=== PATIENT | male | born 1950 | race Caucasian/White ===

== ENCOUNTER 2022-02-09 23:47 | Inpatient (IN) | payer MEDICARE, OTHER ==
[~2022-02-09] VITALS: Ht 177.8 cm; Wt 109.5 kg
[~2022-02-09 23:47] MED LIST: ARICEPT10 MG PO; ASPIRIN CHEWABL81 MG PO; ATORVASTATIN CA20 MG PO; BASAGLAR K100 UNIT/1 SC; BASAGLAR K100 UNIT/1 SQ; BRILINTA 90 MG90 MG PO; BYSTOLIC10 MG PO; CARVEDILOL3.125 MG PO; CATAPRES 0.1MG0.1 MG PO; CATAPRES0.2 MG PO; CEFPODOXIME PR200 MG PO; CEFUROXIME250 MG PO; CLARITIN10 MG PO; CRESTOR40 MG PO; FERREX 150150 MG PO; FISH OIL 1,2001 EAC2 PO; GLUCOPHAGE1000 MG PO; GLUCOTROL5 MG PO; HYDRALAZINE HC100 MG PO; IMDUR ER TAB 6060 MG PO; JANUVIA100 MG PO; LOSARTAN-HCTZ1 EAC1 PO; MELATONIN5 M2 PO; NITROGLYCERIN0.4 MG SL; NORVASC10 MG PO; PAXIL20 MG PO; POTASSIUM CHLO10 ME1 PO; PROTONIX40 MG PO; SINEMET 25-1001 EACH PO; SULFAMETHOXAZO1 EACH PO; THERAGRAN M TAB1 EA PO; TRAMADOL HCL50 MG PO; TRAMADOL PO; TRAZODONE HCL100 MG PO; VITAMIN D35000 UNI1 PO; ZANTAC150 MG PO; ZETIA 10 MG TAB10 MG PO
[2022-02-10 00:24] LABS: HEMOGLOBIN 13.4 gm/dl (14.0-17.5); RED BLOOD COUNT 5.37 M/UL (4.20-5.50); WHITE BLOOD COUNT 26.7 K/UL (4.5-11.0)
[2022-02-10 04:43] LABS: HEMOGLOBIN 11.7 gm/dl (14.0-17.5)
[2022-02-10 04:49] LABS: RED BLOOD COUNT 4.67 M/UL (4.20-5.50); WHITE BLOOD COUNT 17.4 K/UL (4.5-11.0)
--- NOTE | 2022-02-10 12:04 | NUR ---
BEDSIDE BRONCH TO START AT THIS TIME
--- NOTE | 2022-02-10 12:35 | NUR ---
1215 ENDED BRONC/WASHING / PER SX CREW SAMPLE TOOK TO LAB VIA SX , STAYED AT BEDSIDE DURING PROCEDURE, V/S REMAINED STABLE
[2022-02-10 13:22] LABS: BODY FLUID SOURCE BRONCHIAL LAVAGE
--- NOTE | 2022-02-10 13:28 | NUR ---
cardiology PA seeing pt at this time family at bedside
[2022-02-10] MEDS ORDERED: NOVOLOG FL100 UNIT/1 SQ (13:33)
[2022-02-10] MEDS ORDERED: LORATADINE10 MG PO (13:34)
[2022-02-10] MEDS ORDERED: FERREX 150150 MG PO (13:34)
[2022-02-10] MEDS ORDERED: AMLODIPINE BESY10 MG PO (13:35)
[2022-02-10] MEDS ORDERED: BRILINTA90 MG PO (13:41)
[2022-02-10] MEDS ORDERED: FLOMAX 0.4 MG0.4 MG PO (13:41)
--- NOTE | 2022-02-10 14:07 | NUR ---
magazine worker in room at this time pts hr went to 48 and staying there at this time consistantly noted
--- NOTE | 2022-02-10 14:45 | NUR ---
echo just completed
[2022-02-11 05:11] LABS: HEMOGLOBIN 11.4 gm/dl (14.0-17.5); RED BLOOD COUNT 4.55 M/UL (4.20-5.50)
[2022-02-11 05:15] LABS: WHITE BLOOD COUNT 10.7 K/UL (4.5-11.0)
[2022-02-12 05:13] LABS: HEMOGLOBIN 11.5 gm/dl (14.0-17.5); RED BLOOD COUNT 4.57 M/UL (4.20-5.50); WHITE BLOOD COUNT 8.7 K/UL (4.5-11.0)
[2022-02-13 04:30] LABS: HEMOGLOBIN 11.8 gm/dl (14.0-17.5); RED BLOOD COUNT 4.76 M/UL (4.20-5.50)
[2022-02-14 07:04] LABS: HEMOGLOBIN 13.8 gm/dl (14.0-17.5); RED BLOOD COUNT 5.48 M/UL (4.20-5.50)
[2022-02-15 04:51] LABS: HEMOGLOBIN 12.8 gm/dl (14.0-17.5); RED BLOOD COUNT 5.11 M/UL (4.20-5.50)
[2022-02-15 04:55] LABS: WHITE BLOOD COUNT 11.2 K/UL (4.5-11.0)
[2022-02-16 05:14] LABS: HEMOGLOBIN 12.4 gm/dl (14.0-17.5); RED BLOOD COUNT 4.91 M/UL (4.20-5.50); WHITE BLOOD COUNT 11.1 K/UL (4.5-11.0)
[2022-02-17 04:17] LABS: HEMOGLOBIN 12.8 gm/dl (14.0-17.5); RED BLOOD COUNT 5.16 M/UL (4.20-5.50); WHITE BLOOD COUNT 12.6 K/UL (4.5-11.0)
[2022-02-17] MEDS ORDERED: FUROSEMIDE20 MG PO (11:11)
[2022-02-17] MEDS ORDERED: LEVOFLOXACIN250 MG PO (11:11)
[2022-02-17] MEDS ORDERED: ISOSORBIDE MONO60 MG PO (11:16)
== END 2022-02-17 13:03 | disposition home health service (06) | DRG 871 ==
LOC: ER1 23:47 → CCU 02-10 00:46 → CDU 02-10 00:46 → CCU 02-10 02:35
PROVIDERS: Emergency Medicine; Internal Medicine; Internal Medicine Critical Care Medicine; ADMIT Internal Medicine
PROC: 5A1945Z Respiratory Ventilation, 24-96 Consecutive Hours (ICD-10-PCS; 2022-02-10)
PROC: 0B9F8ZX Drainage of Right Lower Lung Lobe, Via Natural or Artificial Opening Endoscopic, Diagnostic (ICD-10-PCS; 2022-02-10)
PROC: B24BZZZ Ultrasonography of Heart with Aorta (ICD-10-PCS; 2022-02-10)
PROC: 3E03329 Introduction of Other Anti-infective into Peripheral Vein, Percutaneous Approach (ICD-10-PCS; 2022-02-10)
PROC: 0BH17EZ Insertion of Endotracheal Airway into Trachea, Via Natural or Artificial Opening (ICD-10-PCS; principal; 2022-02-10 12:00)
PROC: 5A09357 Assistance with Respiratory Ventilation, Less than 24 Consecutive Hours, Continuous Positive Airway Pressure (ICD-10-PCS; 2022-02-12)
DX: A41.9 Sepsis, unspecified organism (principal); I21.A1 Myocardial infarction type 2; J96.21 Acute and chronic respiratory failure with hypoxia; J69.0 Pneumonitis due to inhalation of food and vomit; J15.9 Unspecified bacterial pneumonia; I13.0 Hypertensive heart and chronic kidney disease with heart failure and stage 1 through stage 4 chronic kidney disease, or unspecified chronic kidney disease; I50.32 Chronic diastolic (congestive) heart failure; E87.2 Acidosis; N39.0 Urinary tract infection, site not specified; G93.40 Encephalopathy, unspecified; I25.10 Atherosclerotic heart disease of native coronary artery without angina pectoris; G47.33 Obstructive sleep apnea (adult) (pediatric); R65.20 Severe sepsis without septic shock; K57.90 Diverticulosis of intestine, part unspecified, without perforation or abscess without bleeding; K21.9 Gastro-esophageal reflux disease without esophagitis; K76.0 Fatty (change of) liver, not elsewhere classified; E78.5 Hyperlipidemia, unspecified; I73.9 Peripheral vascular disease, unspecified; F02.80 Dementia in other diseases classified elsewhere, unspecified severity, without behavioral disturbance, psychotic disturbance, mood disturbance, and anxiety; I48.0 Paroxysmal atrial fibrillation; G30.9 Alzheimer's disease, unspecified; G20 Parkinson's disease; H54.40 Blindness, one eye, unspecified eye; D63.1 Anemia in chronic kidney disease; R00.1 Bradycardia, unspecified; E11.51 Type 2 diabetes mellitus with diabetic peripheral angiopathy without gangrene; Z86.73 Personal history of transient ischemic attack (TIA), and cerebral infarction without residual deficits; Z79.899 Other long term (current) drug therapy; Z98.890 Other specified postprocedural states; Z87.891 Personal history of nicotine dependence; Z99.3 Dependence on wheelchair; Z79.82 Long term (current) use of aspirin; Z95.5 Presence of coronary angioplasty implant and graft; Z82.49 Family history of ischemic heart disease and other diseases of the circulatory system; Z79.4 Long term (current) use of insulin
CPT/HCPCS: ECHO; 31500; 36415; 36600; 70450; 71045; 71250; 80048; 80053; 80307; 81001; 82140; 82550; 82553; 82565; 82803; 82962; 83036; 83605; 83735; 83880; 84100; 84132; 84484; 85025; 85027; 85730; 86140; 87015; 87040; 87070; 87081; 87086; 87116; 87205; 87206; 87252; 89051; 92526; 92610; 93005; 93306; 94002; 94003; 94640; 94660; 94664; 94668; 94760; 96374; 96375; 97162; 97167; 97530; 97530-GP-CQ; 99285; C9113; J0456; J0696; J1170; J1644; J1650; J1940; J2250; J2543; J2704; J3480; J7030; J7040; P9047; U0002